=== PATIENT | male | born 1970 ===

== ENCOUNTER 2017-04-29 08:16 | Emergency (ER) | payer OTHER ==
[~2017-04-29] VITALS: Ht 160 cm; Wt 79.4 kg
[2017-04-29] MEDS ORDERED: LANTUS SOL100 UNIT/1 (08:46)
[2017-04-29] MEDS ORDERED: FORTAMET1000 MG (08:46)
[2017-04-29] MEDS ORDERED: HUMALOG100 UNIT/1 (08:47)
[2017-04-29] MEDS ORDERED: ZOCOR40 MG (08:47)
== END 2017-04-29 10:16 | disposition home or self-care (01) ==
LOC: ER 08:16
DX: S01.412A Laceration without foreign body of left cheek and temporomandibular area, initial encounter (principal); W45.8XXA Other foreign body or object entering through skin, initial encounter; Y93.89 Activity, other specified; Y92.69 Other specified industrial and construction area as the place of occurrence of the external cause; Y99.8 Other external cause status